=== PATIENT | female | born 1970 | race Caucasian/White ===

== ENCOUNTER 2020-04-07 20:06 | Emergency (ER) | payer BC ==
[~2020-04-07] VITALS: Ht 157.5 cm; Wt 70.5 kg
[~2020-04-07 20:06] MED LIST: NO HOME MEDICATIONS
[2020-04-07 20:21] VITALS: BP 114/65; PULSE 67; TEMP 99.5
[2020-04-07] MEDS ORDERED: MULTI VITAMINS1 TAB PO (21:02)
== END 2020-04-07 21:50 | disposition home or self-care (01) ==
LOC: COL.ER 20:06
DX: S92.352A Displaced fracture of fifth metatarsal bone, left foot, initial encounter for closed fracture (principal); X50.1XXA Overexertion from prolonged static or awkward postures, initial encounter; Y92.009 Unspecified place in unspecified non-institutional (private) residence as the place of occurrence of the external cause

== ENCOUNTER → 2021-10-31 | Outpatient (CLI) | payer BC ==
[~2021-10-31] MED LIST changes: +MULTI VITAMINS1 TAB PO
== END ==
LOC: MC.RAD 13:17
DX: Z12.31 Encounter for screening mammogram for malignant neoplasm of breast (principal); Z98.82 Breast implant status